=== PATIENT | male | born 1975 | race Caucasian/White ===

== ENCOUNTER 2024-06-03 12:38 | Outpatient (CLI) | payer OTHER, SELFPAY ==
--- NOTE | 2024-06-03 13:00 | CRLHL7_ITS ---
For Patients: As a result of the Century Cures Act, medical imaging exams and procedure reports are released immediately into your electronic medical record. You may view this report before your referring provider. If you have questions, please contact your health care provider. CLINICAL HISTORY: Soft tissue mass below the scapula Technique: Limited soft tissue ultrasound with grayscale and color Doppler FINDINGS/IMPRESSION: Isoechoic circumscribed oval mass measuring 7.3 x 2.1 x 2.9 centimeters without vascularity probably reflects a lipoma. Dictated by Nancy Hearn MD @ 06/04/2024 5:40:07 AM (Electronically Signed)
== END 2024-06-03 12:39 | disposition home or self-care (01) ==
PROVIDERS: Visit Provider Physician Assistant Medical
DX: R22.2 Localized swelling, mass and lump, trunk (principal)
CPT/HCPCS: 76604

== ENCOUNTER 2024-07-21 10:51 | Day surgery (SDC) | payer OTHER, SELFPAY ==
--- NOTE | 2024-07-21 10:59 | SUR.OPER ---
PATIENT QUESTIONS ANSWERED SATISFACTORILY PREOPERATIVELY. PATIENT BROUGHT TO OR #4 PER CART. Patient positioned supine on OR #4 bed for the induction. The perioperative team supported arms bilaterally on arm boards. PT. TURNED ON LEFT SIDE FOR THE PEOCEDURE. Final approval of positioning by surgeon.
[2024-07-21] MEDS: 0.9 % SODIUM CHLORIDE 500 ML 500 ML 100 ML IV (11:00)
[2024-07-21 11:11] VITALS: BP 163/100; PULSE 86; RESP 16; TEMP 36.5; O2SAT 99; BMI 26.6
[2024-07-21] MEDS: SODIUM CHLORIDE 0.9 % (FLUSH) 10 ML SYRINGE IVF (11:14)
--- NOTE | 2024-07-21 11:41 | PM.GSHP ---
History of Present Illness History of Present Illness Date Seen: 07/21/24 Chief complaint: Right Flank/Back Mass Excision Narrative: Figueroa Carty is a 49 year old male Who presents today for excision of a large mass on his right back. No updates to his health history. No recent illness. No chest pain or shortness of breath. [facility] Medical History (Updated 07/17/24 @ 12:07 by Donna Brink RN) Mass of subcutaneous tissue of back ?R22.2 - Localized swelling, mass and lump, trunk (ICD-10) Lipoma of lower back ?D17.1 - Benign lipomatous neoplasm of skin and subcutaneous tissue of trunk (ICD-10) Mass on back ?R22.2 - Localized swelling, mass and lump, trunk (ICD-10) Family history of hypertension ?Z82.49 - Family history of ischemic heart disease and other diseases of the circulatory system (ICD-10) Family history of diabetes mellitus (DM) ?Z83.3 - Family history of diabetes mellitus (ICD-10) Family history of thyroid cancer ?Z80.8 - Family history of malignant neoplasm of other organs or systems (ICD-10) Surgical History (Updated 06/18/24 @ 11:18 by Ghazal Argueta MD) H/O wisdom tooth extraction ?K08.409 - Partial loss of teeth, unspecified cause, unspecified class (ICD-10) Family History (Updated 06/18/24 @ 11:19 by Ghazal Argueta MD) Sister Coagulation disorder Sister Coagulation disorder Social History (Updated 06/18/24 @ 11:20 by Ghazal Argueta MD) Narrative: Works as a marie. No tobacco use. No alcohol use. Smoking Status: Never smoker How often do you have a drink containing alcohol: never AUDIT-C Alcohol total score: 0 Non-prescribed substance use: denies use Caffeine: Yes Meds Home Medications and Allergies Home Medications ?Medication ?Instructions ?Recorded ?Confirmed ?Type No Known Home Medications 05/28/24 07/21/24 History Allergies Allergy/AdvReac Type Severity Reaction Status Date / Time seasonal pollens Allergy Mild Congested Uncoded 06/18/24 11:12 Exam Narrative: Exam Narrative: General appearance: Alert, cooperative, and in no distress Pulmonary: Clear to auscultation bilaterally Cardiovascular Heart: Regular rate and rhythm Musculoskeletal: large mobile mass noted on right lateral back. This disappears with abduction of his arm and is very prominent with abduction. Skin: Normal skin color, texture, and turgor. Neurologic: No focal deficits Psychiatric: Alert, oriented, cooperative, normal affect. Const: Vital Signs, click to edit/add: Vital Signs - 24 hr 07/21/24 11:11 Temperature 97.7 F Pulse Rate 86 Respiratory Rate 16 Blood Pressure 163/100 H Pulse Oximetry 99 Oxygen Delivery Me thod Room Air Progress Note:A&P Assessment and plan (1) Mass on back: Status: Acute (2) Mass of subcutaneous tissue of back: Status: Acute Plan The patient is a 49-year-old male presents today for excision of a large lipoma on his back. This clinically appears to be submuscular in nature given that it moves With movement of his arm. We discussed risks and benefits of the procedure. He understands that if the mass is submuscular nature there is higher risk of nerve injury. Given the size of the mass he does have risk of seroma. Drain placement may be necessary depending on the size of the space. He is agreeable to proceed and is cleared for surgery.
--- NOTE | 2024-07-21 11:45 | PM.GSPRC ---
Operative Note Date of procedure: 07/21/24 Pre-op diagnosis: Right lateral back mass 7 cm Post-op diagnosis: Right submuscular back mass, 10 x 5 x 1 cm Type of Procedure: Excision 10 cm right lateral submuscular back mass. Indications: The patient is a 49-year-old male with a mass on his right chest wall. This was noticed fairly recently. he notices that it moves around with movement of his shoulder and arm. Ultrasound showed a submuscular probable lipoma measuring 7 cm. Procedure Description: After discussing the risks and benefits of the procedure, the patient signed informed consent.? The operative site was marked and the patient was brought to the operating room and positioned on the operating table in the left lateral decubitus position using a beanbag.? Care was taken to pad the patient's pressure points.?? The patient was then given sedation by anesthesia.?? The operative site was then prepped and draped in the usual sterile fashion.? A time-out was then performed. The mass had been marked preoperatively. It was easily palpable once the patient was positioned. Local anesthetic was injected into the skin and subcutaneous tissue overlying the mass. An incision was created following the patient's skin lines over the palpable mass. Dissection was taken down to the subcutaneous fat using cautery. The mass felt deep to the muscle. The latissimus fascia was incised. The latissimus muscle was then encountered. Carefully, using a right angle, I spread the muscle fibers to approach the space deep to the latissimus. Fatty tissue was encountered. A retractor was placed to hold the latissimus fibers laterally. Carefully, I picked through the fatty tissue, however a neurovascular bundle was encountered, likely the long thoracic nerve given the position. I palpated the mass. It was directly deep to the tissue that I was dissecting. There were muscle fibers noted deep to the neurovascular bundle. I was able to carefully retract the bundle anteriorly and approach the serratus fibers deep to it. Once ensuring the neurovascular bundle was away from my dissection, I carefully again dissected through the serratus fibers using a right angle and gently spread them to avoid dividing any muscle fibers. In the space deep to the serratus I encountered a fatty mass. There was a thin capsule overlying this. The capsule was incised. I then, through a combination of blunt dissection and dissection of the wispy fibers using cautery was able to deliver the fatty mass from the submuscular space. The mass was sitting directly on the chest wall over the ribs. The mass was removed completely. This was measured ex vivo and measured 10 x 5 x 1 cm. The space was examined. There was no remaining fatty tissue noted. I then examined the wound for hemostasis. A small amount of bleeding in the tissue of the chest wall deep the muscle was cauterized. Sourav was then placed in this space. 2 0 Vicryl interrupted sutures were placed to close the serratus muscle, to close the space and prevent seroma formation. Care was taken to avoid suturing or injuring the neurovascular bundle deep to the latissimus. Similarly, the latissimus fascia was closed using 2-0 Vicryl interrupted sutures. The wound was then closed with 3-0 Vicryl dermal and 4-0 Monocryl running subcuticular suture. Sterile dressings were then applied. ? The patient was then woken and transported to the recovery area in stable condition. ? The patient tolerated the procedure well. Findings: 10 x 5 x 1 cm submuscular lipoma. Anesthesia: MAC Surgeon: Ghazal Argueta MD Estimated blood loss (mL): 5 Specimen: Other Additional Specimen Information: Right chest wall mass Condition: stable Disposition: same day
[2024-07-21] MEDS: CEFAZOLIN 1 GM inj IVP (12:07)
[2024-07-21] MEDS: BUPIVACAINE 0.25% 30 ML 20 ML INJECTION (12:14)
[2024-07-21 13:30] VITALS: BP 115/69; PULSE 86; RESP 16; O2SAT 99
--- NOTE | 2024-07-21 13:30 | P.ANES_ITS ---
Anesthesia Charges Start Date/Time Anesthesia Start Date: 07/21/24 Anesthesia Start Time: 11:52 Stop Date/Time Anesthesia Stop Date: 07/21/24 Anesthesia Stop Time: 13:28 Coding CPT Codes CPT Codes: ANESTH HEAD/NECK/PTRUNK - 20981 ([id number]) P1 - NORMAL HEALTHY PATIENT, QK - EKG TECHNICIAN 2-4 CNCRNT ANES PROC, QX - VEGETABLE SPECKER SVLoreta W/ MED DIRECTION
--- NOTE | 2024-07-21 13:30 | W.ANESCHARGE ---
Anesthesia Charges Start Date/Time Anesthesia Start Date: 07/21/24 Anesthesia Start Time: 11:52 Stop Date/Time Anesthesia Stop Date: 07/21/24 Anesthesia Stop Time: 13:28 Coding CPT Codes CPT Codes: ANESTH HEAD/NECK/PTRUNK - 61279 ([id number]) P1 - NORMAL HEALTHY PATIENT, QK - ALL ROUND BUTCHER 2-4 CNCRNT ANES PROC, QX - GEMOLOGIST SVLoreta W/ MED DIRECTION
--- NOTE | 2024-07-21 13:37 | P.ANES_ITS ---
Anesthesia Charges Start Date/Time Anesthesia Start Date: 07/21/24 Anesthesia Start Time: 11:52 Stop Date/Time Anesthesia Stop Date: 07/21/24 Anesthesia Stop Time: 13:28 Coding CPT Codes CPT Codes: ANESTH HEAD/NECK/PTRUNK - 55050 ([id number]) QK - RESIDENTIAL TREATMENT COUNSELOR 2-4 CNCRNT ANES PROC, QX - FILLER SIFTER HELPER SVC W/ MED DIRECTION, P1 - NORMAL HEALTHY PATIENT
--- NOTE | 2024-07-21 13:37 | W.ANESCHARGE ---
Anesthesia Charges Start Date/Time Anesthesia Start Date: 07/21/24 Anesthesia Start Time: 11:52 Stop Date/Time Anesthesia Stop Date: 07/21/24 Anesthesia Stop Time: 13:28 Coding CPT Codes CPT Codes: ANESTH HEAD/NECK/PTRUNK - 72506 ([id number]) QK - GROUNDS MAINTENANCE MANAGER 2-4 CNCRNT ANES PROC, QX - CREDIT PORTFOLIO MANAGER SVC W/ MED DIRECTION, P1 - NORMAL HEALTHY PATIENT
[2024-07-21 13:45] VITALS: BP 125/88; PULSE 77; RESP 16; O2SAT 99
[2024-07-21 14:00] VITALS: BP 140/88; PULSE 86; RESP 16; O2SAT 99
[2024-07-21] MEDS: ACETAMINOPHEN 325 MG TABLET 650 MG PO (14:00)
[2024-07-21 14:15] VITALS: BP 142/81; PULSE 80; RESP 16; O2SAT 99
== END 2024-07-21 14:25 | disposition home or self-care (01) ==
PROVIDERS: Visit Provider Surgery
PROC: (CPT 21933; principal; 2024-07-21 12:30)
DX: D17.1 Benign lipomatous neoplasm of skin and subcutaneous tissue of trunk (principal); R22.2 Localized swelling, mass and lump, trunk
CPT/HCPCS: 21933; 00300; 88304; 88307; 88377; A9270; J0665; J0690; J2250; J2405; J2704; J3490; J7030